=== PATIENT | female | born 1985 | race Caucasian/White ===

== ENCOUNTER 2024-03-15 11:47 | Inpatient (IN) | payer MEDICAID, SELFPAY ==
[2024-03-15] VITALS (11 sets, daily range): BP systolic 93–181; BP diastolic 54–110; PULSE 100–153; RESP 14–22; TEMP 36.6–37.1; O2SAT 94–100; BMI 20.1; BMI 19.8
--- NOTE | 2024-03-15 12:26 | EDS_ITS ---
HPI History of Present Illness Chief Complaint: ETOH Intox Informant: patient Onset/Context/Timing Onset: Month(s) Context: Gradual Onset Timing: Continuous Current Severity: Moderate Maximum Severity: Moderate Narrative Narrative: 38-year-old female with history of alcohol abuse, IV fentanyl, methamphetamines and Xanax. She is requesting detox. Yesterday she overdosed and was given Narcan and revived at home and never was evaluated. Her boyfriend was also doing drugs at the time overdosed and . Her last detox was about 3 years ago in [place]. She does do IV drugs. Prior similar symptoms: Yes Recent Illness/Hospitalization: No PFSH [facility] Medical History Seizures Home Medications ?Medication ?Instructions ?Recorded ?Last Taken ?Type escitalopram oxalate 20 mg tablet 20 mg PO DAILY 03/15/24 Unknown History (Lexapro) hydroxyzine HCl 50 mg tablet 50 mg PO TID 03/15/24 Unknown History lamotrigine 100 mg tablet 100 mg PO BID 03/15/24 Unknown History (Lamictal) trazodone 50 mg tablet 50 mg PO QHS PRN sleep 03/15/24 Unknown History Allergy/AdvReac Type Severity Reaction Status Date / Time acetaminophen (From Allergy Hives Verified 03/15/24 11:48 Darvocet-N) gabapentin Allergy SEIZURES Verified 03/15/24 11:48 propoxyphene (From Allergy Hives Verified 03/15/24 11:48 Darvocet-N) tramadol Allergy SEIZURE Verified 03/15/24 11:48 Social History Smoking Status: Unknown if ever smoked ROS ROS ED ROS Narrative Denies recent illness. Constitutional Constitutional ED: Denies chills or fever(s) Eyes Eyes: Denies blurry vision ENT ENT ED: Denies ear pain Cardiovascular Cardiovascular: Denies chest pain Respiratory/Chest Respiratory/Chest: Denies cough or dyspnea Genitourinary Genitourinary ED: Denies dysuria Musculoskeletal Musculoskeletal: Denies arthralgias or back pain Integumentary Reports abscess Neurologic Neurologic: Denies headache(s) Psychiatric Psychiatric: Denies anxiety Endocrine Endocrinology: Denies cold intolerance Hematologic/Lymphatic Hematologic/Lymphatic: Denies easy bleeding or easy bruising Allergic/Immunologic Allergic/Immunologic ED: Denies mouth swelling, tongue swelling or urticaria EXAM Physical Exam Narrative Exam Narrative: 38-year-old female no acute distress vital signs stable afebrile. She is t achycardic. H EENT exam pupils round reactive light. Very poor decaying dentition multiple missing teeth. Multiple cavities. Teeth eroded to the gum and multiple areas. Able to open close her mouth. No trismus. No trouble swallowing or breathing. No facial swelling. Neck nontender. No lymphadenopathy. Lungs clear to auscultation bilaterally. Heart tachycardic rate of 130 no murmur. Chest wall and ribs nontender. Abdomen soft nontender. Moving all 4 extremities. IV track curry he has an early abscess right forearm palmar aspect midportion. No lymphangitic streaking. No axillary lymphadenopathy. Patient is awake and alert. Answering questions following commands. Const Vital Signs: 03/15/24 11:47 03/15/24 11:47 03/15/24 12:47 Temperature 98 F 98.7 F Temperature Source Temporal Oral Pulse Rate 153 H 145 H 105 H Respiratory Rate 14 22 H 16 Blood Pressure 174/110 H 181/109 H 93/54 L Blood Pressure Mean 131 133 67 Blood Pressure Source Monitor Blood Pressure Position Semi-Fowlers Blood Pressure Location Right Arm Pulse Ox 96 94 97 Oxygen Delivery Method Room Air Room Air Room Air 03/15/24 12:47 03/15/24 13:00 03/15/24 14:00 Temperature Temperature Source Pulse Rate 105 H 108 H 107 H Respiratory Rate 16 16 16 Blood Pressure 93/54 L 94/56 L 102/74 Blood Pressure Mean 67 68 83 Blood Pressure Source Blood Pressure Position Blood Pressure Location Pulse Ox 97 96 99 Oxygen Delivery Method Room Air Room Air Room Air 03/15/24 15:00 Temperature Temperature Source Pulse Rate 100 Respiratory Rate 20 H Blood Pressure 110/73 Blood Pressure Mean 85 Blood Pressure Source Blood Pressure Position Blood Pressure Location Pulse Ox 100 Oxygen Delivery Method Room Air Positive well nourished and well developed; Negative for obese, cachectic, contractures or unkempt General Appearance ED: well developed and NAD; Negative for unkempt, cachectic, contractures or pallor Nutritional Appearance: Negative for cachectic or obese HEENT Reports moist mucous membranes; Denies dry mucous membranes HEENT Narrative: Very poor decaying dentition. atraumatic; Negative for trauma or tenderness Mouth ED: No dry mucous membranes Mouth: No dry mucous membranes Eyes PERRL and EOMs intact bilaterally General Eye ED: Negative for pale conjunctiva, scleral icterus or other Neck no lymphadenopathy, supple and no JVD Thyroid: Negative for tender Lymph Lymphatic: no lymphadenopathy noted; Negative for lymphadenopathy Chest Wall inspection of chest normal and palpation of chest normal Resp normal respiratory effort and clear to auscultation bilaterally Effort and Inspection: Negative for retractions Auscultation: Negative for rales, rhonchi, wheezes or diminished lung sounds Cardio regular rhythm, S1 normal heart sound, S2 normal heart sound and no murmurs; Negative for regular rate Rate: tachycardic Rhythm: Negative for abnormal rhythm Bruits: Negative for other GI soft to palpation, non-tender, non-distended and no masses Inspection: Negative for abdominal distention Palpation: Negative for tender, guarding or mass Back/Spine no CVA tenderness General Back: Negative for CVA tenderness Cervical Spine: Negative for cervical spine tenderness Thoracic Spine / Upper Back: Negative for thoracic spinal tenderness Lumbar Spine / Lower Back: Negative for lumbar spinal tenderness Extremity Extremity Narrative: Track curry bilateral arms. Early abscess right palmar forearm. General Extremety ED: Negative for edema or tenderness General Extremity: Negative for edema Neuro oriented x3 and CN's II-XII intact bilaterally Sensorium / Orientation: alert, oriented to person, oriented to place and oriented to time; Negative for confused, lethargic or stuporous Motor Exam: strength 5/5 throughout Psych mental status grossly normal and thought process normal Appearance: Negative for unkempt Attitude: No belligerent, No agitated and No aggressive Mood & Affect: Negative for anxious or tearful Skin Skin Narrative: Track curry bilateral forearms. General Skin Exam: scars; Negative for pallor Lesions: no lesions Rashes: no rashes MDM MDM MDM Narrative Medical decision making narrative: 38-year-old requesting detox for alcohol and fentanyl. Screening labs. Hospitalist on page. She will be given a dose of Keflex for a early abscess right forearm. The right forearm area that look like an early abscess I cleaned it with alcohol swabs and placed a needle and aspirated it is just blood there is no pus I do not think it needs to be I&D at this time. I discussed that with the hospi talist. Lab Data Attestation: I reviewed the patient's lab results. Lab results narrative: CBC normal. White count 8. H&H 13 and 40. Platelets 291. Electrolytes show sodium 138. Potassium of 3. Gap 10. Normal BUN and creatinine of five 0.6. Liver enzymes unremarkable. Glucose 148. Tox screen positive for amphetamines, MDMA, benzodiazepines and cocaine. Also cannabis. Alcohol level is elevated at 105. Labs: Laboratory Results - last 24 hr 03/15/24 12:40 WBC 8.6 RBC 4.55 Hgb 13.5 Hct 40.0 MCV 87.9 MCH 29.7 MCHC 33.8 RDW Std Deviation 39.9 RDW Coeff of Sigifredo 12.4 Plt Count 291 MPV 10.9 Immature Gran % (Auto) 0.300 Neut % (Auto) 70.8 H Lymph % (Auto) 22.4 [place] % (Auto) 6.0 Eos % (Auto) 0.0 Baso % (Auto) 0.5 Absolute Neuts (auto) 6.1 Absolute Lymphs (auto) 1.93 Nucleated RBC % 0 PT 12.6 INR 0.9 Sodium 138 Potassium 3.0 L Chloride 107 Carbon Dioxide 21.0 Anion Gap 10 BUN 5 L Creatinine 0.62 Estim Creat Clear Calc 95.02 Est GFR (MDRD) Af Amer 137 Est GFR (MDRD) Non-Af 113 BUN/Creatinine Ratio 8.1 L Glucose 148 H Calcium 8.5 Phosphorus 1.2 L Magnesium 1.7 Total Bilirubin 0.30 AST 43 H ALT 58 H Alkaline Phosphatase 71 Total Protein 7.0 Albumin 3.1 L Globulin 3.9 Albumin/Globulin Ratio 0.8 L Serum , Qual NEGATIVE Urine Color Yellow Urine Clarity Sl. Cloudy Urine pH 6.0 Ur Specific [place] 1.020 Urine Protein 15 H Urine Glucose (UA) Normal Urine Ketones Negative Urine Occult Blood 25 H Urine Nitrite Negative Urine Bilirubin Negative Urine Urobilinogen Normal Ur Leukocyte Esterase 100 H Urine Opiates Screen NEGATIVE Urine Methadone Screen NEGATIVE Ur Barbiturates Screen NEGATIVE Ur Phencyclidine Scrn NEGATIVE Ur Amphetamines Screen POSITIVE H MDMA (Ecstasy) Screen POSITIVE H U Benzodiazepines Scrn POSITIVE H Urine Cocaine Screen NEGATIVE U Cannabinoids Screen POSITIVE H Ur Drug Screen Comment Ethyl Alcohol 105.0 Discharge Plan Dx/Rx/DC Orders Clinical Impression: Alcohol abuse, Drug abuse, Admitted to alcohol detoxification center, Abscess of forearm, right, Acute alcohol intoxication Disposition Disposition: Acute Care Hospital [facility]
[2024-03-15 12:47] LABS: Absolute Lymphocyte Count 1.93 X10^3/uL (0.83-4.51); Absolute Neutrophil Count 6.1 X10^3/uL (2.0-7.7); Basophil# 0.04 X10^3/uL; Basophil% 0.5 % (0-1); Hemoglobin 13.5 g/dL (12.0-15.0); Lymphocyte # 1.93 X10^3/ul (0.83-4.51); Lymphocyte % 22.4 % (19-41); Mean Corp Hgb Conc 33.8 g/dL (32-36); Mean Corpuscular Hgb 29.7 pg (27.0-32.0); Mean Corpuscular Volume 87.9 fL (81-99); Mean Platelet Vol. 10.9 fl (6.2-12.0); Monocyte# 0.52 X10^3/uL; NRBC Flagged by Analyzer 0 % (0-5); Neutrophil # 6.08 X10^3/uL (2.7-7.7); Neutrophil % 70.8 % (47-70); Platelet Count 291 K/mm3 (150-450); RBC Distribution Width CV 12.4 % (11.6-14.6); RBC Distribution Width SD 39.9 fl (35.1-43.9); Red Blood Count 4.55 M/mm3 (4.2-5.4); White Blood Count 8.6 K/mm3 (4.4-11.0)
[2024-03-15 13:12] LABS: Amphetamine Urine VISTA POSITIVE (<1000 ng/mL); Barbiturate Urine VISTA NEGATIVE (< 200 ng/mL); Benzodiazepine Urine VISTA POSITIVE (< 200 ng/mL); Cocaine Urine VISTA NEGATIVE (< 300 ng/mL); Ecstacy Urine VISTA POSITIVE (< 500 ng/mL); Methadone Urine VISTA NEGATIVE (< 300 ng/mL); PCP Urine VISTA NEGATIVE (< 25 ng/mL); THC Urine VISTA POSITIVE (< 50 ng/mL); Vista UDS pH Range 5
[2024-03-15 13:24] LABS: Internal QC Validated? YES +Cl - CLEAR BKGD; Pregnancy, Serum, hCG Quali. NEGATIVE Negative
[2024-03-15 13:25] LABS: ALB/GLOB Ratio 0.8 RATIO (0.9-2.4); AST(SGOT) 43 U/L (15-37); Alanine Aminotransfer ALT/SGPT 58 U/L (13-56); Albumin, Serum 3.1 g/dL (3.2-5.0); Alkaline Phosphatase 71 U/L (45-117); Anion Gap 10 (5-15); BUN 5 mg/dL (7-18); BUN/Creat Ratio 8.1 RATIO (10-20); Calcium,Total 8.5 mg/dL (8.5-10.1); Chloride 107 mmol/L (98-107); Creatinine, Serum 0.62 mg/dL (0.55-1.02); EST Glomerular Filtration Rate 113 mL/min (>60); Est Glom Filt Rate - Afr Amer 137 mL/min (>60); Estimated Creatinine Clearance 95.02 ml/min; Globulin 3.9 g/dL (2.2-4.2); Glucose 148 mg/dL (74-106); Sodium Level 138 mmol/L (136-145)
[2024-03-15] MEDS: Smz/Tmp Ds Tablet 1 TABLET PO (13:31)
[2024-03-15] MEDS: Cephalexin 250 MG Capsule 500 MG PO (13:31)
[2024-03-15] MEDS: Lactated Ringers 1,000 ML 999 ML IV (13:46)
[2024-03-15 13:59] LABS: Magnesium 1.7 mg/dL (1.6-2.6); Phosphorus 1.2 mg/dL (2.5-4.9)
--- NOTE | 2024-03-15 14:11 | HP.PCM.HOS_ITS ---
HPI - General General Date of Admission: 03/15/24 Date of Service: 03/15/24 Chief Complaint: Multiple substance use including alcohol, benzodiazepines, opioids, meth and crack cocaine HPI Narrative FLOWER MENEZES, is a 38 F came to ED in intoxicated state, lethargic drowsy after alcohol and multiple substance use. She is calling anxiety attack and mild shaking. She also lost her boyfriend last night after overdosing probably from fentanyl. Her list of substance use is long. She drinks alcohol [place] which is 24 ounce 14% alcohol 3-4 times a day. She also drinks [employer] liquor about twice a week, 1 large bottle between her boyfriend and herself. She also drinks 3-4 beers daily sometimes. Besides that, she takes Xanax. She had 10 bouts of 2 mg Xanax finished within 4 days. She also uses needle for methamphetamine, half a gram 3-4 times a day. She also uses crack cocaine. She said usually she does not use opioids but probably given contamination in the street and does not know most of the time what she is using. As mentioned above, the probably overdosed fentanyl and lost her boyfriend. She also smokes 1 pack cigarettes daily. ED physician also found some induration and hardness over right forearm probably from renal use. ED physician did not find any pus from needle probe. IV antibiotic is started Past medical history: Chronic hepatitis C never been treated. Denies history of HIV. Does not know about chronic hep B [facility] Medical History Seizures Home Medications ?Medication ?Instructions ?Recorded ?Last Taken ?Type escitalopram oxalate 20 mg tablet 20 mg PO DAILY 03/15/24 Unknown History (Lexapro) hydroxyzine HCl 50 mg tablet 50 mg PO TID 03/15/24 Unknown History lamotrigine 100 mg tablet 100 mg PO BID 03/15/24 Unknown History (Lamictal) trazodone 50 mg tablet 50 mg PO QHS PRN sleep 03/15/24 Unknown History Allergy/AdvReac Type Severity Reaction Status Date / Time acetaminophen (From Allergy Hives Verified 03/15/24 11:48 Darvocet-N) gabapentin Allergy SEIZURES Verified 03/15/24 11:48 propoxyphene (From Allergy Hives Verified 03/15/24 11:48 Darvocet-N) tramadol Allergy SEIZURE Verified 03/15/24 11:48 Social History Smoking Status: Unknown if ever smoked ROS ROS Narrative She is drowsy and lethargic. Complete 14 system ROS is unobtainable. She complained of mild burning pain in the urine. Denies fever or chills. She denies chronic heart disease or lung disease. Does not see physician. Review of Systems ROS Unobtainable: due to encephalopathy Vital Signs Vital Signs Vital Signs: 03/15/24 11:47 03/15/24 11:47 03/15/24 12:47 Temperature 98 F 98.7 F Temperature Source Temporal Oral Pulse Rate 153 H 145 H 105 H Respiratory Rate 14 22 H 16 Blood Pressure 174/110 H 181/109 H 93/54 L Blood Pressure Mean 131 133 67 Blood Pressure Source Monitor Blood Pressure Position Semi-Fowlers Blood Pressure Location Right Arm Pulse Ox 96 94 97 Oxygen Delivery Method Room Air Room Air Room Air 03/15/24 12:47 03/15/24 13:00 03/15/24 14:00 Temperature Temperature Source Pulse Rate 105 H 108 H 107 H Respiratory Rate 16 16 16 Blood Pressure 93/54 L 94/56 L 102/74 Blood Pressure Mean 67 68 83 Blood Pressure Source Blood Pressure Position Blood Pressure Location Pulse Ox 97 96 99 Oxygen Delivery Method Room Air Room Air Room Air Weight Weight: 110 lb 0.171 oz Body Mass Index (BMI) 20.1 Physical Exam Narrative General: Awake, drowsy and lethargic, crying/sobbing. Oriented to time and HEENT: Atraumatic, PERRLA, EOMI, Normocephalic Oral: Oral mucosa dry no Gingival or Mucosal Lesions/ Ulcerations Neck: O supple, No JVD, Negative Carotid Bruits Chest wall/Lungs: Air entry diminished in bilateral lung bases. No crepitation/rhonchi Cardiovascular: Regular rate, Regular Rhythm, Normal S1, Normal S2, No M/G/R Abdomen: Bowel Sounds Present, Soft, Non Tender, Non-Distended. Liver not enlarged : No dysuria. No renal angle tenderness. No suprapubic tenderness. Extremities: No edema, Capillary Refill Less than 3 Seconds Skin: No rashes, No breakdown Musculoskeletal: No Tenderness to Palpation of Joints or Extremities Neurological: Cranial nerves II-XII grossly intact, DTR 2+/4. No acute focal neurological deficit. Psych/Mental Status: Flat affect. Mild shaking Results Lab / Micro Data 03/15/24 12:40 03/15/24 12:40 Labs: Laboratory Results - last 24 hr 03/15/24 12:40: WBC 8.6, RBC 4.55, Hgb 13.5, Hct 40.0, MCV 87.9, MCH 29.7, MCHC 33.8, RDW Std Deviation 39.9, RDW Coeff of Sigifredo 12.4, Plt Count 291, MPV 10.9, Immature Gran % (Auto) 0.300, Neut % (Auto) 70.8 H, Lymph % (Auto) 22.4, [place] % (Auto) 6.0, Eos % (Auto) 0.0, Baso % (Auto) 0.5, Absolute Neuts (auto) 6.1, Absolute Lymphs (auto) 1.93, Nucleated RBC % 0, Sodium 138, Potassium 3.0 L, Chloride 107, Carbon Dioxide 21.0, Anion Gap 10, BUN 5 L, Creatinine 0.62, Estim Creat Clear Calc 95.02, Est GFR (MDRD) Af Amer 137, Est GFR (MDRD) Non-Af 113, B UN/Creatinine Ratio 8.1 L, Glucose 148 H, Calcium 8.5, Phosphorus 1.2 L, Magnesium 1.7, Total Bilirubin 0.30, AST 43 H, ALT 58 H, Alkaline Phosphatase 71, Total Protein 7.0, Albumin 3.1 L, Globulin 3.9, Albumin/Globulin Ratio 0.8 L , Serum , Qual NEGATIVE, Urine Opiates Screen NEGATIVE, Urine Methadone Screen NEGATIVE, Ur Barbiturates Screen NEGATIVE, Ur Phencyclidine Scrn NEGATIVE, Ur Amphetamines Screen POSITIVE H, MDMA (Ecstasy) Screen POSITIVE H, U Benzodiazepines Scrn POSITIVE H, Urine Cocaine Screen NEGATIVE, U Cannabinoids Screen POSITIVE H, Ur Drug Screen Comment , Ethyl Alcohol 105.0 Assessment & Plan Assessment/Plan (1) Acute hyperactive alcohol withdrawal delirium: (2) Polysubstance (including opioids) dependence with physiol dependence: PLAN: Plan This 38-year-old female being admitted for acute alcohol withdrawal syndrome including polysubstance use and dependence 1. Acute alcohol withdrawal syndrome with history of chronic alcohol use disorder, dependence, tolerance and relapse: [facility]. Patient has 20 years of drinking alcohol with intermittent remission for few months. Patient is being admitted to [facility] floor. Patient on phenobarbital based order set along with other adjunctive medications gabapentin, Bentyl, Vistaril, clonidine, Klonopin as needed for alcohol withdrawal symptom control. Patient is on thiamine and folate acid. Hold phenobarbital for lethargy or sedation CIWA monitor. manager strategic 180 consulted. 2. Right forearm induration/possible early abscess: No obvious pus aspirated from ER physician. Feels nodular on ventral aspect of right forearm. Started on IV ceftriaxone and vancomycin. 3. Possible UTI: Patient complained of burning micturition/dysuria. UA with urine culture ordered 4. Possible acute opioid intoxication/overdose with risk for withdrawal syndrome: Patient said she was unknowingly using opioid/fentanyl. The patient is started on buprenorphine along with other adjunctive medications as needed for medical stabilization as per order set of opioid withdrawal syndrome.Patient also on trazodone, hydroxyzine, gabapentin as needed ordered. Advised quitting opioid use. manager strategic consult. 5. Acute opioid polysubstance use including methamphetamine/crack cocaine dependence, benzodiazepine/Xanax dependence: 6. Chronic smoking/nicotine dependence and use: nicotine patch ordered. 7. Chronic hep C: Advised follow-up outpatient with PCP/GI clinic for appropriate investigation and manage Advanced directive: Patient does not have a living will or advanced directive. Patient did not right state of mind to discuss about advanced directive/living will. Full code unverified Charges/Coding Visit Charges Inpatient E&M: 11010 Init Hosp L3
[2024-03-15] MEDS: Potassium Chloride Oral Tablet 20 MEQ 40 MEQ PO ×2 (14:40→16:55)
[2024-03-15] MEDS: Ceftriaxone 1 GM/50 ML BAG IV (14:50)
[2024-03-15 15:04] LABS: International Normalized Ratio 0.9; Prothrombin Time (Protime)PT. 12.6 SECONDS (11.7-14.9)
[2024-03-15 15:11] LABS: Color, Urine Yellow (Yellow); Glucose, Dipstick Normal (Normal); Ketone-Dipstick Negative (Negative); Leukocyte Esterase-Dipstick 100 /ul (Negative); Mucous, Urine 0 SEEN /hpf (<or=2+); Nitrite-Dipstick Negative (Negative); Occult Blood-Urine 25 /ul (Negative); Protein-Dipstick 15 mg/dl (Negative); Urine Bilirubin Dipstick Negative (Negative); Urine Clarity Sl. Cloudy (Clear); Urine Urobilinogen Normal (Normal)
[2024-03-15 15:27] LABS: Bacteria 2+ /hpf (None Seen); Red Blood Cells-Urine 0-5 SEEN /hpf (0-5); Squamous Epithelial Cells - UA 5-10 SEEN /hpf (5-10); White Blood Cells 5-10 SEEN /hpf (0-5)
[2024-03-15] MEDS: Vancomycin HCl 750 MG in 0.9% Normal Saline (250mL Bag) 250 ML 250 MG IV (16:15)
--- NOTE | 2024-03-15 17:43 | PCM.RX.CS ---
Consult Antibiotic Management Pharmacy has been consulted to manage selected antibiotic: Vancomycin Type of Intervention Type of Consult: New start Suspected Infection Suspected Infection: Skin/Soft tissue Prior Doses of Antibiotics Prior Doses of Antibiotics Received/Current Regimen: Vancomycin 750 mg initial dose given 03/15/24 @ 6272 Labs Labs: Sodium 138 mmol/L (136-145) 03/15/24 12:40 Potassium 3.0 mmol/L (3.5-5.1) L 03/15/24 12:40 Chloride 107 mmol/L (98-107) 03/15/24 12:40 Carbon Dioxide 21.0 mmol/L (21.0-32.0) 03/15/24 12:40 Anion Gap 10 (5-15) 03/15/24 12:40 BUN 5 mg/dL (7-18) L 03/15/24 12:40 Creatinine 0.62 mg/dL (0.55-1.02) 03/15/24 12:40 Est GFR (MDRD) Af Amer 137 mL/min (>60) 03/15/24 12:40 Est GFR (MDRD) Non-Af 113 mL/min (>60) 03/15/24 12:40 BUN/Creatinine Ratio 8.1 RATIO (10-20) L 03/15/24 12:40 Glucose 148 mg/dL (74-106) H 03/15/24 12:40 Dosing Weight Weight used for dosin kg Estimated Creatinine Clearance Estimated Creatinine Clearance: ~95 Goal Trough Goal Trough: 10-15 mcg/mL Pharmacy Plan for Drug Dosing Pharmacy Plan for Drug Dosing: Vancomycin 750 mg initial dose followed by 750 mg Q12H. Pharmacy Service will continue to monitor and adjust dosing as required. Follow-Up Labs Follow-Up Labs: Trough: Vancomycin Date/Time Labs Ordered Labs to be done on [date and time ordered]: 03/17 @ 9151
[2024-03-15] MEDS: Phenobarbital 32.4 MG Tablet 64.8 MG PO ×2 (18:28→22:07)
[2024-03-15] MEDS: hydrOXYzine PAM 25 MG Capsule 50 MG PO (18:29)
[2024-03-15] MEDS: traZODone 100 MG Tablet PO (22:07)
[2024-03-15] MEDS: Ondansetron 8 MG Tablet PO (22:07)
[2024-03-15] MEDS: KCL 40mEq in 0.9% NS 40 MEQ/1,000 ML IV.SOLN 125 MEQ IV (22:16)
[2024-03-16] MEDS: Phenobarbital 32.4 MG Tablet 64.8 MG PO ×6 (02:14→22:14)
[2024-03-16 02:19] VITALS: BP 86/54; PULSE 86; RESP 18; TEMP 37; O2SAT 94
[2024-03-16] MEDS: Vancomycin HCl 750 MG in 0.9% Normal Saline (250mL Bag) 250 ML 250 MG IV (03:27)
[2024-03-16 06:00] VITALS: BP 103/69; PULSE 81; RESP 16; TEMP 37; O2SAT 98
[2024-03-16 08:04] LABS: ALB/GLOB Ratio 0.7 RATIO (0.9-2.4); AST(SGOT) 40 U/L (15-37); Alanine Aminotransfer ALT/SGPT 49 U/L (13-56); Albumin, Serum 2.2 g/dL (3.2-5.0); Alkaline Phosphatase 53 U/L (45-117); Anion Gap 4 (5-15); BUN 6 mg/dL (7-18); BUN/Creat Ratio 11.3 RATIO (10-20); Calcium,Total 7.3 mg/dL (8.5-10.1); Chloride 114 mmol/L (98-107); Creatinine, Serum 0.53 mg/dL (0.55-1.02); EST Glomerular Filtration Rate 136 mL/min (>60); Est Glom Filt Rate - Afr Amer 164 mL/min (>60); Estimated Creatinine Clearance 109.52 ml/min; Glucose 94 mg/dL (74-106); Potassium 4.2 mmol/L (3.5-5.1); Protein, Total 5.2 g/dL (6.4-8.2); Sodium Level 141 mmol/L (136-145)
[2024-03-16] MEDS: Folic Acid 1 MG Tablet PO (08:19)
[2024-03-16] MEDS: Thiamine Hydrochloride 100 MG Tablet PO (08:19)
[2024-03-16 08:58] VITALS: BP 96/58; PULSE 83; RESP 16; TEMP 36.3; O2SAT 96
[2024-03-16] MEDS: Ceftriaxone 1 GM/50 ML BAG IV (09:42)
[2024-03-16] MEDS: 0.9% Saline Lock 10 ML Syringe IV ×2 (09:42→22:15)
[2024-03-16] MEDS: 0.9% Normal Saline (250mL Bag) 250 ML 15 ML IV (09:43)
--- NOTE | 2024-03-16 11:24 | PN_ITS ---
Subjective Subjective Patient seen and examined. She had no active complaints and denied any symptoms of withdrawal. Review of systems is otherwise negative. She has remained hemodynamically stable. Objective Data Objective Data Vital Signs: Vital Signs Temp Pulse Resp BP Pulse Ox O2 Del Method 97.3 F L 83 16 96/58 L 96 Room Air 03/16/24 08:58 03/16/24 08:58 03/16/24 08:58 03/16/24 08:58 03/16/24 08:58 03/16/24 08:58 Oxygen Delivery Method Room Air Weight: 108 lb 6.4 oz Body Mass Index (BMI) 19.8 Intake & Output: Intake and Output for Last 24 Hours 03/14/24 03/15/24 03/16/24 23:59 23:59 23:59 Intake Total 1605 / 1605 1333.5 / 1333.5 Balance 1605 / 1605 1333.5 / 1333.5 Lab / Micro Data 03/15/24 12:40 03/16/24 06:53 Labs: Laboratory Results - last 24 hr 03/15/24 12:40: WBC 8.6, RBC 4.55, Hgb 13.5, Hct 40.0, MCV 87.9, MCH 29.7, MCHC 33.8, RDW Std Deviation 39.9, RDW Coeff of Sigifredo 12.4, Plt Count 291, MPV 10.9, Immature Gran % (Auto) 0.300, Neut % (Auto) 70.8 H, Lymph % (Auto) 22.4, [place] % (Auto) 6.0, Eos % (Auto) 0.0, Baso % (Auto) 0.5, Absolute Neuts (auto) 6.1, Absolute Lymphs (auto) 1.93, Nucleated RBC % 0, PT 12.6, INR 0.9, Sodium 138, P otassium 3.0 L, Chloride 107, Carbon Dioxide 21.0, Anion Gap 10, BUN 5 L, Creatinine 0.62, Estim Creat Clear Calc 95.02, Est GFR (MDRD) Af Amer 137, Est GFR (MDRD) Non-Af 113, BUN/Creatinine Ratio 8.1 L, Glucose 148 H, Calcium 8.5, P hosphorus 1.2 L, Magnesium 1.7, Total Bilirubin 0.30, AST 43 H, ALT 58 H, Alkaline Phosphatase 71, Total Protein 7.0, Albumin 3.1 L, Globulin 3.9, A lbumin/Globulin Ratio 0.8 L, Serum , Qual NEGATIVE, Urine Color Yellow, Urine Clarity Sl. Cloudy, Urine pH 6.0, Ur Specific [place] 1.020, Urine Protein 15 H, Urine Glucose (UA) Normal, Urine Ketones Negative, Urine Occult Blood 25 H , Urine Nitrite Negative, Urine Bilirubin Negative, Urine Urobilinogen Normal, U r Leukocyte Esterase 100 H, Urine RBC 0-5 SEEN, Urine WBC 5-10 SEEN, Ur Squamous Epith Cells 5-10 SEEN, Urine Bacteria 2+, Urine Mucus 0 SEEN, Urine Opiates Screen NEGATIVE, Urine Methadone Screen NEGATIVE, Ur Barbiturates Screen NEGATIVE, Ur Phencyclidine Scrn NEGATIVE, Ur Amphetamines Screen POSITIVE H, M DMA (Ecstasy) Screen POSITIVE H, U Benzodiazepines Scrn POSITIVE H, Urine Cocaine Screen NEGATIVE, U Cannabinoids Screen POSITIVE H, Ur Drug Screen Comment , Ethyl Alcohol 105.0 03/16/24 06:53: Sodium 141, Potassium 4.2, Chloride 114 H, Carbon Dioxide 23.0, Anion Gap 4 L, BUN 6 L, Creatinine 0.53 L, Estim Creat Clear Calc 109.52, Est GFR (MDRD) Af Amer 164, Est GFR (MDRD) Non-Af 136, BUN/Creatinine Ratio 11.3, Glucose 94, Calcium 7.3 L, Total Bilirubin 0.20, AST 40 H, ALT 49, Alkaline Phosphatase 53, Total Protein 5.2 L, Albumin 2.2 L, Globulin 3.0, A lbumin/Globulin Ratio 0.7 L Micro: Microbiology 03/15/24 17:51 Nasal Secretion MRSA (PCR) - Final Meth. resistant Staph. aureus Physical Exam Const alert, oriented x3, no apparent distress and well nourished General Appearance: cooperative and well developed HEENT normocephalic, head/scalp atraumatic and moist oral mucous membranes Mouth: dry mucous membranes Eyes PERRL and EOMs intact bilaterally Neck no lymphadenopathy, supple and no JVD Lymph Lymphatic: no lymphadenopathy noted and no lymphedema noted Resp normal respiratory effort, normal air movement and clear to auscultation bilaterally Cardio regular rate, regular rhythm, S1 normal heart sound, S2 normal heart sound and no murmurs GI normal to inspection, nondistended, normoactive bowel sounds, soft to palpation, non-tender and non-distended Extremity normal capillary refill, no clubbing, cyanosis or edema and no calf tenderness General Extremity: no tenderness to palpation of joints or extremities Skin Skin Narrative: has small induration over right inner forearm, measuring <1cm. Not erythematous, nontender. Neuro CN's II-XII intact bilaterally, no focal motor deficits, no sensory deficits noted and deep tendon reflexes 2+ bilaterally Motor Exam: strength 5/5 throughout and general weakness Psych thought process normal and cooperative Appearance: appropriate Assessment & Plan Assessment/Plan (1) Acute alcohol intoxication: (2) Abscess of forearm, right: (3) Polysubstance (including opioids) dependence with physiol dependence: PLAN: Plan #Acute alcohol withdrawal * on alcohol withdrawal protocol with phenobarbital * on thiamine, folic acid and multivite * adjunctive meds for symptomatic relief * monitor CIWA score * #Right forearm induration * Has a small focus of induration about the right forearm. It is less than a centimeter and is not erythematous or tender. * will dc iv vancomycin. Continue IV ceftriaxone due to UTI. * #UTI: Complained of micturition and dysuria on admission. On IV ceftriaxone. Urinalysis showed 2+ bacteria. Urine cultures pending #Opioid use disorder: * Admitted to using opioid and fentanyl. * Currently on epinephrine due to concerns for withdrawal. * On adjunctive meds for symptomatic relief * #Nicotine dependence: on nicotine patch. Counseled to quit #Hep C: treatment naive. Counseled to follow up with GI on outpatient basis to be evaluated for treatement DVT prophylaxis: low risk. encouraged to ambulate Charges/Coding Visit Charges Inpatient E&M: 42600 Subs Hosp L2
[2024-03-16 11:32] VITALS: BP 88/48; PULSE 91; RESP 16; TEMP 36.9; O2SAT 98
--- NOTE | 2024-03-16 12:20 | ADDICTION ---
Met with Pt to complete RAMP assessments and DC planning. Discussed w/pt her tx options as well as discussed her recent trauma and environmental factors. Client initially reported that she would go to [facility] in [place]. However, as we talked, pt recognized that [place] is where all of her trauma has occurred as well as where she has always relapsed. Upon further discussion, pt agreed to go to [facility] of [facility]. Pt has some grief and loss to work through as well. This worker is looking into two facilities that would pick her up tomorrow, finish her detox there and roll her over to residential treatment in the same facility. [facility] will be calling for a screen today and will potentially pic her up tomorrow. Will amend once discharge plan is complete.
[2024-03-16 14:16] VITALS: BP 104/68; PULSE 89; RESP 16; TEMP 37; O2SAT 97
--- NOTE | 2024-03-16 14:33 | CASEMGMT ---
Social Work- SW met with pt to complete SDOH assessment. Pt reports that she has been 'renting' a garage with her boyfriend for several months. Prior to that, pt and boyfriend were living in a tent in pt sister's yard since June 2023. Pt reports that prior to hat time, she and boyfriend rented an apartment, but boyfriend lost his job and they then lost the apartment. Pt reports that she does not work and has no income. Pt reports that she doesn't use food pantries and finds food wherever since her food stamps ended two months ago. Pt reports that her boyfriend overdosed and less that 2 days agp. Pt brother, Jonathan, is primary support. Pt has other family in the area, but only interacts with Jonathan. Pt reports that she has no caseworkers or community supports. Pt reports no mental health involvement. Pt reports a prior inpatient treatment stay. Pt reports that she does not plan to return to [facility], but has no idea what her plans may be post-inpatient stay. Pt declines local resources. SW will remain available to follow. PAVEL Maurer
[2024-03-16 22:00] VITALS: BP 116/78; PULSE 86; RESP 16; TEMP 36.9; O2SAT 98
[2024-03-16] MEDS: traZODone 100 MG Tablet PO (22:14)
[2024-03-17 02:00] VITALS: BP 100/64; PULSE 83; RESP 18; TEMP 36.6; O2SAT 96
[2024-03-17] MEDS: Phenobarbital 32.4 MG Tablet 64.8 MG PO ×3 (02:10→09:16)
[2024-03-17] MEDS: hydrOXYzine PAM 25 MG Capsule 50 MG PO (02:12)
[2024-03-17 06:00] VITALS: BP 101/64; PULSE 79; RESP 18; TEMP 36.7; O2SAT 98
[2024-03-17 07:55] VITALS: BP 91/56; PULSE 82; RESP 16; TEMP 36.6; O2SAT 100
[2024-03-17] MEDS: Smz/Tmp Ds Tablet 1 TABLET PO (08:03)
[2024-03-17] MEDS: Folic Acid 1 MG Tablet PO (08:13)
[2024-03-17] MEDS: Thiamine Hydrochloride 100 MG Tablet PO (08:13)
--- NOTE | 2024-03-17 09:09 | CASEMGMT ---
Social Work- SW called RAMP navigator. Pt will be d/c today to [facility]. Time TBD. PAVEL Maurer
--- NOTE | 2024-03-17 10:26 | DCINST_ITS ---
Discharge Instructions Diet Discharge Diet: No restrictions Activity Discharge Activity: Return to Normal Activity Weight Bearing Status: Weight bearing as tolerated Dressing / Incision Call your doctor if you observe: Fever of 101 or Higher, Shortness of breath, Dizziness, Swelling in the ankles and Chest pain Follow Up Care Test Results: Test results from this visit will be discussed in further detail at your follow- up appointment, if applicable. Discharge Plan Admission Admit Date/Time: 03/15/24 13:37 Primary Reason for Your Visit: acute alcohol withdrawal Attending Provider: Clover Stacy Primary Care Provider: Care Physician,Rachel Primary Consulting Providers: Davidson Rowe Instructions Patient Instructions: Alcohol Withdrawal: What to Expect, ED Withdrawal Alcohol Discharge Orders/Prescriptions Prescriptions: New sulfamethoxazole-trimethoprim 800-160 mg Tablet 1 tab PO BIDCM Qty: 10 0RF Continued lamotrigine [Lamictal] 100 mg tablet 100 mg PO BID escitalopram oxalate [Lexapro] 20 mg tablet 20 mg PO DAILY hydroxyzine HCl 50 mg tablet 50 mg PO TID trazodone 50 mg tablet 50 mg PO QHS PRN (Reason: sleep) Referrals / Follow Up: Care Physician,No Primary [Primary Care Provider] - Within 2 Weeks Disposition Disposition (needs filled in before D/C Order can be placed): Home, Self Care
--- NOTE | 2024-03-17 10:27 | DS.PCM_ITS ---
Providers Date of Admission: 03/15/24 Date of Discharge: 03/17/24 Primary Care Physician: No Primary Care Phys Reason For Visit: ALCOHOL WITHDRAWAL Diagnosis Discharge Diagnosis (1) Acute alcohol intoxication: Status: Acute Code(s): F10.929 - Alcohol use, unspecified with intoxication, unspecified (2) Abscess of forearm, right: Status: Acute Code(s): L02.413 - Cutaneous abscess of right upper limb (3) Polysubstance (including opioids) dependence with physiol dependence: Status: Acute Code(s): F19.20 - Other psychoactive substance dependence, uncomplicated Plan #Acute alcohol withdrawal * on alcohol withdrawal protocol with phenobarbital * on thiamine, folic acid and multivite * adjunctive meds for symptomatic relief * monitor CIWA score * #Right forearm induration * Has a small focus of induration about the right forearm. It is less than a centimeter and is not erythematous or tender. * will dc iv vancomycin. Continue IV ceftriaxone due to UTI. * #UTI: Complained of micturition and dysuria on admission. On IV ceftriaxone. Urinalysis showed 2+ bacteria. Urine cultures pending #Opioid use disorder: * Admitted to using opioid and fentanyl. * Currently on epinephrine due to concerns for withdrawal. * On adjunctive meds for symptomatic relief * #Nicotine dependence: on nicotine patch. Counseled to quit #Hep C: treatment naive. Counseled to follow up with GI on outpatient basis to be evaluated for treatement DVT prophylaxis: low risk. encouraged to ambulate Medications at Discharge Home Medications escitalopram oxalate 20 mg tablet (Lexapro) 20 mg PO DAILY 03/15/24 hydroxyzine HCl 50 mg tablet 50 mg PO TID 03/15/24 lamotrigine 100 mg tablet (Lamictal) 100 mg PO BID 03/15/24 trazodone 50 mg tablet 50 mg PO QHS PRN sleep 03/15/24 sulfamethoxazole 800 mg-trimethoprim 160 mg tablet 1 tab PO BIDCM #10 tabs 03/17/24 Hospital Course Operations None Procedures None Summary of Care Provided Minutes Spent on Discharge: 48 Hospital Course: Patient is a 38-year-old female with a past medical history as outlined was admitted to the ED on 03/15/2024 with a complaint of intoxication after alcohol and polysubstance abuse. She says she had lost her boyfriend admitted before after he overdosed on fentanyl. She therefore drank heavily. She drinks a 24 ounce 14% alcohol drink 3-4 times a day and also drinks 3-4 beers daily. She also takes Xanax and also used methamphetamine as well as crack cocaine. She says she did not use opioids but could not rule out accidentally using it is due to contamination from her street drugs. Review of symptoms otherwise negative. She did admit to some induration and hardness over her right forearm probably from IV drug use. She was admitted and managed for acute alcohol withdrawal. Showed admitted on MedSurg and started on alcohol withdrawal protocol with phenobarbital. Was initially started on IV vancomycin and ceftriaxone for right forearm cellulitis and possible early abscess. She also complained of burning with urination and dysuria so urinalysis was done which showed some evidence of UTI. This was covered by the ceftriaxone. Urine cultures were ordered. She was also started on opioid withdrawal protocol with buprenorphine. Patient opted to go to an inpatient rehab facility where they could also do detox. She was therefore discharged to the inpatient rehab facility on 03/17/2024. She is to complete her acute detox there and then to follow-up with long-term rehab. She was discharged and prescription for p.o. Bactrim as her MRSA screen was positive. The Bactrim was therefore CT of the developing cellulitis on the right forearm as well as the UTI. She is to follow-up with her primary care doctor within 1 to 2 weeks. Patient seen and examined prior to discharge. She had no complaints and had an uneventful night. Review of systems otherwise negative. Labs and vitals reviewed. Home medication reviewed and reconciled. Physical Exam Const alert, oriented x3 and no apparent distress General Appearance: cooperative, comfortable, well kempt and well developed HEENT normocephalic, head/scalp atraumatic and moist oral mucous membranes Mouth: oral and palatal mucosa normal Eyes PERRL and EOMs intact bilaterally Neck no lymphadenopathy, supple and no JVD Lymph Lymphatic: no lymphadenopathy noted and no lymphedema noted Resp normal respiratory effort, normal air movement and clear to auscultation bilaterally Cardio regular rate, regular rhythm, S1 normal heart sound, S2 normal heart sound and no murmurs GI normal to inspection, nondistended, normoactive bowel sounds, soft to palpation, non-tender and non-distended Extremity normal to inspection, full ROM, normal capillary refill, no clubbing, cyanosis or edema and no calf tenderness General Extremity: no tenderness to palpation of joints or extremities Skin Skin Narrative: has small induration over right inner forearm, measuring <1cm. Not erythematous, nontender. Neuro oriented x3, CN's II-XII intact bilaterally, moves all extremities, no focal motor deficits, no sensory deficits noted and deep tendon reflexes 2+ bilaterally Sensorium / Orientation: awake and alert Motor Exam: strength 5/5 throughout and general weakness Psych thought process normal and cooperative Appearance: appropriate Weight / BMI Weight Weight: 108 lb 6.4 oz Body Mass Index (BMI) 19.8 ABG / Lab / Microbiology Data 03/15/24 12:40 03/16/24 06:53 Microbiology: Microbiology 03/15/24 17:51 Nasal Secretion MRSA (PCR) - Final Meth. resistant Staph. aureus D/C Instructions Discharge Diet: No restrictions Discharge Activity: Return to Normal Activity Weight Bearing Status: Weight bearing as tolerated Call your doctor if you observe: Fever of 101 or Higher, Shortness of breath, Dizziness, Swelling in the ankles and Chest pain Meaningful Use Info Meaningful Use Meaningful Use Diagnoses (Choose all that apply): None applicable Ischemic Stroke Statin Dosing Therapy Reference: STATIN DOSE THERAPY REFERENCE: * Patients > 75 years receive moderate or high dose statin therapy. * Patients 75 years or YOUNGER should receive HIGH intensity statin dose unless contraindicated. You will be required to document reason for non-treatment if statin daily dose does not meet guidelines. HIGH DOSE STATIN THERAPY DAILY Atorvastatin > than or = to 40 mg Rosuvastatin > than or = to 20 mg Amlodipine + Atorvastatin > than or = to 2.5/40 mg Ezetimibe + Simvastatin 10/80 mg Simvastatin 80mg Discharge Plan Admission Admit Date/Time: 03/15/24 13:37 Primary Reason for Your Visit: acute alcohol withdrawal Attending Provider: Clover Stacy Primary Care Provider: Care Physician,No Primary Consulting Providers: Davidson Rowe Instructions Patient Instructions: Alcohol Withdrawal: What to Expect, ED Withdrawal Alcohol Discharge Orders/Prescriptions Prescriptions: New sulfamethoxazole-trimethoprim 800-160 mg Tablet 1 tab PO BIDCM Qty: 10 0RF Continued lamotrigine [Lamictal] 100 mg tablet 100 mg PO BID escitalopram oxalate [Lexapro] 20 mg tablet 20 mg PO DAILY hydroxyzine HCl 50 mg tablet 50 mg PO TID trazodone 50 mg tablet 50 mg PO QHS PRN (Reason: sleep) Referrals / Follow Up: Care Physician,No Primary [Primary Care Provider] - Within 2 Weeks Disposition Disposition (needs filled in before D/C Order can be placed): Home, Self Care Charges/Coding Visit Charges Inpatient E&M: 12521 Disch Hosp >30min
--- NOTE | 2024-03-17 12:10 | PCA ---
[facility] called to update, their forklift driver called off for the day so they are working on an alternative transportation. Will call back with an updated ETA and forklift driver information.
[2024-03-17 14:00] VITALS: BP 113/73; PULSE 94; RESP 16; TEMP 37.2; O2SAT 100
--- NOTE | 2024-03-17 15:18 | CASEMGMT ---
Social Work- SW received notification from bedside nurse that pt is wanting to leave AMA. Bedside nurse reports transport for [facility] has not shown up yet. SW called [facility] navigator and left a voicemail. SW called [facility] to verify transportation. Worker at [facility] reports that transport left around 1:40pm for [place]. SW passed this information on to bedside nurse. PAVEL Maurer
== END 2024-03-17 15:58 | disposition other institution (70) | DRG 773 ==
LOC: ED 13:33 → MS3 17:31
PROVIDERS: Admitting Provider Internal Medicine; Emergency Provider Emergency Medicine; Visit Provider Student in an Organized Health Care Education/Training Program
DX: F10.229 Alcohol dependence with intoxication, unspecified (principal); F11.220 Opioid dependence with intoxication, uncomplicated; F10.231 Alcohol dependence with withdrawal delirium; B18.2 Chronic viral hepatitis C; F17.210 Nicotine dependence, cigarettes, uncomplicated; F15.20 Other stimulant dependence, uncomplicated; L03.113 Cellulitis of right upper limb; L02.413 Cutaneous abscess of right upper limb; N39.0 Urinary tract infection, site not specified; B95.62 Methicillin resistant Staphylococcus aureus infection as the cause of diseases classified elsewhere; Y90.5 Blood alcohol level of 100-119 mg/100 ml; Z79.899 Other long term (current) drug therapy
CPT/HCPCS: 36415; 80053; 80307; 81001; 82077; 83735; 84100; 84703; 85025; 85610; 87086; 87149; 87641; 99285; J7050; J7120; A4216

== ENCOUNTER → 2024-05-31 | Outpatient (CLI) | payer MEDICAID, SELFPAY ==
[2024-05-31 15:36] LABS: Absolute Neutrophil Count 4.9 X10^3/uL (2.0-7.7); Basophil# 0.03 X10^3/uL; Basophil% 0.4 % (0-1); Hematocrit 42.7 % (37-47); Hemoglobin 14.3 g/dL (12.0-15.0); Lymphocyte % 25.9 % (19-41); Mean Corp Hgb Conc 33.5 g/dL (32-36); Mean Corpuscular Hgb 29.5 pg (27.0-32.0); Mean Platelet Vol. 11.3 fl (6.2-12.0); Monocyte# 0.53 X10^3/uL; Monocyte% 7.2 % (0-10); NRBC Flagged by Analyzer 0 % (0-5); Neutrophil # 4.87 X10^3/uL (2.7-7.7); Neutrophil % 66.2 % (47-70); Platelet Count 246 K/mm3 (150-450); RBC Distribution Width CV 12.2 % (11.6-14.6); RBC Distribution Width SD 39.8 fl (35.1-43.9); Red Blood Count 4.85 M/mm3 (4.2-5.4); White Blood Count 7.4 K/mm3 (4.4-11.0)
[2024-05-31 15:42] LABS: Prothrombin Time (Protime)PT. 12.9 SECONDS (11.7-14.9)
[2024-05-31 16:21] LABS: ALB/GLOB Ratio 0.9 RATIO (0.9-2.4); AST(SGOT) 79 U/L (15-37); Alanine Aminotransfer ALT/SGPT 163 U/L (13-56); Albumin, Serum 3.6 g/dL (3.2-5.0); Alkaline Phosphatase 74 U/L (45-117); Anion Gap 2 (5-15); BUN 11 mg/dL (7-18); BUN/Creat Ratio 11.7 RATIO (10-20); Calcium,Total 8.8 mg/dL (8.5-10.1); Chloride 109 mmol/L (98-107); Creatinine, Serum 0.94 mg/dL (0.55-1.02); EST Glomerular Filtration Rate 69 mL/min (>60); Est Glom Filt Rate - Afr Amer 84 mL/min (>60); Globulin 3.9 g/dL (2.2-4.2); Glucose 93 mg/dL (74-106); Potassium 3.8 mmol/L (3.5-5.1); Protein, Total 7.5 g/dL (6.4-8.2); Sodium Level 139 mmol/L (136-145)
[2024-05-31 18:08] LABS: HIV - WCH Non-Reactive (Nonreactive); Hepatitis B Surface Antibody Non-Reactive; Hepatitis B Surface Antigen Non-Reactive (Nonreactive)
[2024-06-05 20:08] LABS: HCV Quant. RNA PCR 145000 IU/mL (.); HCV log 10 5.161 (.); Hepatitis A AB, Total Negative (Negative)
== END | disposition home or self-care (01) ==
PROVIDERS: Referring Provider Family Medicine; Visit Provider Family Medicine
DX: B18.2 Chronic viral hepatitis C (principal)
CPT/HCPCS: 36415; 80053; 85025; 85610; 86703; 86706; 86708; 87340; 87522

== ENCOUNTER → 2024-06-08 | Outpatient (CLI) | payer MEDICAID, SELFPAY | END | disposition home or self-care (01) | PROVIDERS: Referring Provider Family Medicine; Visit Provider Family Medicine | DX: B18.2 Chronic viral hepatitis C (principal) ==